=== PATIENT | male | born 1940 | race Caucasian/White ===

== ENCOUNTER 2018-08-09 16:36 | Inpatient (IN) | payer MEDICARE, MEDICAID ==
[2018-08-09 17:19] LABS: % BASOPHILS 0.7 % (0.0-2.0); % EOSINOPHILS 10.5 % (0.0-5.0); % LYMPHOCYTES 15.8 % (20.0-50.0); % MONOCYTES 11.4 % (2.0-10.0); % NEUTROPHILS 61.6 % (40.0-80.0); EOSINOPHILE ABSOLUTE 0.6 Th/cmm (0.1-0.4); HEMATOCRIT 32.5 % (41.0-60); HEMOGLOBIN 10.6 gm/dL (12-16); MEAN CELL VOLUME 87.7 fl (80-99); MEAN CORPUSCULAR HEMOGLOBIN 28.6 pg (27.0-31.0); MEAN CORPUSCULAR HGB CONC 32.7 pg (28.0-36.0); MEAN PLATELET VOLUME 6.8 fl; MONOCYTE ABSOLUTE 0.7 Th/cmm (0.3-1.0); NEUTROPHILE ABSOLUTE 3.8 Th/cmm (1.8-8.0); PLATELET COUNT 244 Th/cmm (150-400); RED BLOOD COUNT 3.71 Mil/cmm (3.80-5.80); RED CELL DISTRIBUTION WIDTH 14.5 % (11.5-20.0); WHITE BLOOD COUNT 6.1 Th/cmm (4.8-10.8)
[2018-08-09 17:27] LABS: URINE SOURCE CLEAN C
[2018-08-09 17:29] LABS: URINE BILIRUBIN NEGATIVE (NEGATIVE); URINE BLOOD SMALL (NEGATIVE); URINE GLUCOSE (UA) NEGATIVE (NEGATIVE); URINE KETONE NEGATIVE (NEGATIVE); URINE LEUKOCYTE ESTERASE LARGE (NEGATIVE); URINE MICROSCOPIC INDICATED? YES; URINE NITRATE POSITIVE (NEGATIVE); URINE PROTEIN NEGATIVE (NEGATIVE); URINE UROBILINOGEN 0.2 E.U./dL (0.2 - 1.0)
[2018-08-09 17:37] LABS: URINE CLARITY CLOUDY (CLEAR); URINE COLOR YELLOW
[2018-08-09 17:41] LABS: URINE RBC 0-2 /hpf (0-5)
[2018-08-09 17:43] LABS: URINE BACTERIA FEW /hpf (NONE SEEN); URINE EPITHELIAL CELLS RARE /lpf (FEW); URINE WBC >100 /hpf (0-5)
[2018-08-09 17:44] LABS: ALB/GLOB RATIO 1.3 (1.0-1.8); ALBUMIN 3.6 gm/dL (4.2-5.5); ALKALINE PHOSPHATASE 83 U/L (34-104); ANION GAP 12.8 (7.0-16.0); BILIRUBIN,TOTAL 0.2 mg/dL (0.3-1.0); BUN - UREA NITROGEN 34 mg/dL (7-25); CALCIUM SERUM 8.7 mg/dL (8.6-10.3); CARBON DIOXIDE 23.6 mEq/L (21.0-31.0); CHLORIDE 107 mEq/L (98-107); CREATININE - SERUM 1.3 mg/dL (0.7-1.3); GLUCOSE 127 mg/dL (70-105); MAGNESIUM 1.8 mg/dL (1.9-2.7); PHOSPHOROUS 3.1 mg/dL (2.5-5.0); POTASSIUM SERUM 4.4 mEq/L (3.5-5.1); SGOT 16 U/L (13-39); SGPT/ALT 14 U/L (7-52); SODIUM SERUM 139 mEq/L (136-145); TOTAL PROTEIN,SERUM 6.3 gm/dL (6.0-8.3)
[2018-08-09 17:52] LABS: AMPHETAMINE URINE NEGATIVE (NEGATIVE); BARBITURATES URINE NEGATIVE (NEGATIVE); BENZODIAZEPINES QUAL URINE NEGATIVE (NEGATIVE); CANNABINOID THC NEGATIVE (NEGATIVE); COCAINE METABOLITE QUAL URINE NEGATIVE (NEGATIVE); METHADONE URINE NEGATIVE (NEGATIVE); METHAMPHETAMINES QUAL URINE NEGATIVE (NEGATIVE); OPIATES (MORPHINE) QUAL. URINE NEGATIVE (NEGATIVE); PHENCYCLIDINE (PCP) URINE NEGATIVE (NEGATIVE); TRICYCLICS (TCA) QUAL. URINE POSITIVE (NEGATIVE)
[2018-08-09] MEDS ORDERED: Ciprofloxacin 400mg Premix PB 400 MG/200 ML BAG IV ONE ×2 (18:04→18:26)
--- NOTE | 2018-08-09 19:09 | ED Physician Chart ---
ED Chief Complaint/HPI - Patient Information Date Seen:: 08/09/18 Time Seen:: 16:47 Chief Complaint:: increased agitation History of Present Illness:: agitation and screaming and yelling at staff Allergies:: Allergies Allergy/AdvReac Type Severity Reaction Status Date / Time Penicillins Allergy Verified 08/09/18 17:08 Vitals:: Vital Signs - 8 hr 08/09/18 16:47 Temp 97.7 F HR 82 RR 16 BP 141/75 O2 Sat % 97 Historian:: Medical Records Review:: Nurse's Note Reviewed, Transfer documents Reviewed ED Review of Systems - Review of Systems General/Constitutional: No fever, No chills, No weight loss, No weakness, No diaphoresis, No edema, No loss of appetite Skin: No skin lesions, No rash, No bruising Head: No headache, No light-headedness Eyes: No loss of vision, No pain, No diplopia ENT: No earache, No nasal drainage, No sore throat, No tinnitus Neck: No neck pain, No swelling, No thyromegaly, No stiffness, No mass noted Cardio Vascular: No chest pain, No palpitations, No PND, No orthopnea, No edema Pulmonary: No SOB, No cough, No sputum, No wheezing GI: No nausea, No vomiting, No diarrhea, No pain, No melena, No hematochezia, No constipation, No hematemesis G/U: No dysuria, No frequency, No hematuria, Other (foul smelling urine) Musculoskeletal: No bone or joint pain, No back pain, No muscle pain Endocrine: No polyuria, No polydipsia Psychiatric: No prior psych history, No depression, No anxiety, No suicidal ideation, Other (increased agitation) Hematopoietic: No bruising, No lymphadenopathy Allergic/Immuno: No urticaria, No angioedema Neurological: No syncope, No focal symptoms, No weakness, No paresthesia, No headache, No seizure, No dizziness, No confusion, No vertigo ED Past Medical History - Past Medical History Obtainable: No Past Medical History: DM, Dyslipidemia, Other (UTI's; muscle weakness; bph) Family Medical History - Family Member Father History Unknown: Yes Ethnicity: Non- Living Status: Unknown Hx Family Cancer: No Hx Family Coronary Artery Disease: No Hx Family Congestive Heart Failure: No Hx Family Hypertension: Yes Hx Family Stroke: No Hx Family Diabetes: No Hx Family Seizures: No Hx Family Dementia: No Hx Family AIDS: No Hx Family HIV: No Hx Family COPD: No Hx Family Hepatitis: No Hx Family Psychiatric Problems: No Hx Family Tuberculosis: No ED Physical Exam - Physical Examination General/Constitutional: Awake, Well-developed, well-nourished, Alert, No distress, Non-toxic appearing, Ambulatory Other Gen/Cons comments:: strong smell of urine. Head: Atraumatic Eyes: Lids, conjuctiva normal, PERRL, EOMI Skin: Nl inspection, No rash, No skin lesions, No ecchymosis, Well hydrated, No lymphadenopathy ENMT: External ears, nose nl Neck: Nontender, No nuchal rigidity, No stridor Respiratory: Nl effort/Exclusion, Clear to Auscultation, No Wheeze/Rhonchi/Rales Cardio Vascular: RRR, No murmur, gallop, rubs, NL S1 S2 GI: No tenderness/rebounding/guarding, No organomegaly, No hernia, Normal BS's, Nondistended, No mass/bruits, No McBurney tenderness : No CVA tenderness Extremities: No tenderness or effusion, Full ROM, normal strength in all extremities Neuro/Psych: Normal motor strength, Normal gait Other Neuro/Psych comments:: not agitated at this time. ED Labs/Radiology/EKG Results - Lab Results Results: Laboratory Tests 08/09/18 08/09/18 08/09/18 17:01 17:10 17:10 WBC 6.1 RBC 3.71 L Hgb 10.6 L Hct 32.5 L MCV 87.7 MCH 28.6 MCHC Differential 32.7 RDW 14.5 Plt Count 244 MPV 6.8 Neutrophils % 61.6 Lymphocytes % 15.8 L Monocytes % 11.4 H Eosinophils % 10.5 H Basophils % 0.7 Sodium 139 Potassium 4.4 Chloride 107 Carbon Dioxide 23.6 Anion Gap 12.8 BUN 34 H Creatinine 1.3 Est GFR ( Amer) TNP Est GFR (Non-Af Amer) TNP BUN/Creatinine Ratio 26.2 Glucose 127 H POC Glucose 116 H Calcium 8.7 Phosphorus 3.1 Magnesium 1.8 L Total Bilirubin 0.2 L AST 16 ALT 14 Alkaline Phosphatase 83 Total Protein 6.3 Albumin 3.6 L Globulin 2.7 Albumin/Globulin Ratio 1.3 TSH Urine Source Urine Color Urine Clarity Urine pH Ur Specific [place] Urine Protein Urine Glucose (UA) Urine Ketones Urine Blood Urine Nitrate Urine Bilirubin Urine Urobilinogen Ur Leukocyte Esterase Urine RBC Urine WBC Ur Epithelial Cells Urine Bacteria Urine Opiates Screen Urine Methadone Screen Ur Barbiturates Screen Ur Tricyclics Screen Ur Phencyclidine Scrn Amphetamines Screen U Methamphetamines Scrn U Benzodiazepines Scrn U Cocaine Metab Screen U Cannabinoids Screen 08/09/18 08/09/18 08/09/18 17:10 17:15 17:15 WBC RBC Hgb Hct MCV MCH MCHC Differential RDW Plt Count MPV Neutrophils % Lymphocytes % Monocytes % Eosinophils % Basophils % Sodium Potassium Chloride Carbon Dioxide Anion Gap BUN Creatinine Est GFR ( Amer) Est GFR (Non-Af Amer) BUN/Creatinine Ratio Glucose POC Glucose Calcium Phosphorus Magnesium Total Bilirubin AST ALT Alkaline Phosphatase Total Protein Albumin Globulin Albumin/Globulin Ratio TSH 1.68 Urine Source CLEAN C Urine Color YELLOW Urine Clarity CLOUDY Urine pH 7.0 Ur Specific [place] 1.020 Urine Protein NEGATIVE Urine Glucose (UA) NEGATIVE Urine Ketones NEGATIVE Urine Blood SMALL H Urine Nitrate POSITIVE H Urine Bilirubin NEGATIVE Urine Urobilinogen 0.2 Ur Leukocyte Esterase LARGE H Urine RBC 0-2 H Urine WBC >100 H Ur Epithelial Cells RARE Urine Bacteria FEW Urine Opiates Screen NEGATIVE Urine Methadone Screen NEGATIVE Ur Barbiturates Screen NEGATIVE Ur Tricyclics Screen POSITIVE H Ur Phencyclidine Scrn NEGATIVE Amphetamines Screen NEGATIVE U Methamphetamines Scrn NEGATIVE U Benzodiazepines Scrn NEGATIVE U Cocaine Metab Screen NEGATIVE U Cannabinoids Screen NEGATIVE ED Assessment - Assessment General Assessment: call to Dr. Barr regarding the very strong UTI that this patient has with greater than 100 WBC in the urine. Dr. Barr will admit this patient to the med/surg unit for medical treatment. ED Septic Shock - . Is Septic Shock (SBP<90, OR Lactate>4 mmol\L) present?: No - <6hrs of presentation: Vital Signs: Vital Signs - 8 hr 08/09/18 16:47 Temp 97.7 F HR 82 RR 16 BP 141/75 O2 Sat % 97 ED Reassessment (Disposition) - Reassessment Reassessment Condition:: Unchanged - Diagnosis Diagnosis:: Urinary tract infection Increased agitation. Anemia Dehydration. Positive tricyclics - Patient Disposition Discharge/Transfer:: Acute Care w/in this hosp Admitted to:: Med/Surg Condition at Disposition:: Stable, Unchanged
[2018-08-09] MEDS ORDERED: Magnesium Hydroxide (MOM) 30 mL UDC PO PRN (19:12)
[2018-08-09] MEDS ORDERED: Albuterol Nebulizer 2.5mg/3mL HHN PRN (19:12)
[2018-08-09] MEDS ORDERED: Fleet Enema 135 mL RC PRN (19:12)
[2018-08-09] MEDS ORDERED: GLUCAGON HCl 1 MG KIT IM PRN (19:20)
[2018-08-09] MEDS ORDERED: Dextrose 50% 50 mL Abboject IVP PRN (19:20)
[2018-08-09] MEDS ORDERED: Albuterol Nebulizer 2.5mg/3mL HHN ONE (19:39)
[2018-08-09] MEDS: INSULIN LISPRO SLIDING SCALE 100 UNITS/ML UNIT SUBQ SCH (20:26)
[2018-08-10 00:58] VITALS: BP 123/63
[2018-08-10 05:45] LABS: ANION GAP 11.6 (7.0-16.0); BUN - UREA NITROGEN 32 mg/dL (7-25); CALCIUM SERUM 8.6 mg/dL (8.6-10.3); CARBON DIOXIDE 24.7 mEq/L (21.0-31.0); CHLORIDE 107 mEq/L (98-107); CREATININE - SERUM 1.2 mg/dL (0.7-1.3); GLUCOSE 95 mg/dL (70-105); MAGNESIUM 1.9 mg/dL (1.9-2.7); PHOSPHOROUS 3.1 mg/dL (2.5-5.0); POTASSIUM SERUM 4.3 mEq/L (3.5-5.1); SODIUM SERUM 139 mEq/L (136-145)
[2018-08-10] MEDS: Levofloxacin 500mg/100mL 500 MG/100 ML BAG IV SCH (06:10)
[2018-08-10] MEDS: INSULIN LISPRO SLIDING SCALE 100 UNITS/ML UNIT SUBQ SCH ×3 (06:58→21:16)
[2018-08-10] MEDS: Benztropine 1 MG TAB PO SCH ×2 (08:51→21:20)
--- NOTE | 2018-08-10 12:58 | History & Physical ---
ADMIT DATE: 08/09/2018 CHIEF COMPLAINT: Increasing agitation, the patient not clearly ____ HISTORY OF PRESENT ILLNESS: This is a 77-year-old male with history of diabetes, hypertension, BPH, CHF, hypercholesterolemia, and UTI, admitted from nursing facility secondary to increase in agitation. The patient is found to have florid UTI and transferred to medical floor for further management. PAST MEDICAL HISTORY: As mentioned in the history of present illness. PAST SURGICAL HISTORY: Status post ____ surgery x 3 and eye surgery. ALLERGIES: PENICILLIN. MEDICATIONS: Aripiprazole, Levaquin, tamsulosin, Tylenol, aspirin, ____, Cogentin, ____, BuSpar, Tegretol, cholecalciferol, clonazepam, Depakote, finasteride, Lasix, magnesium, sodium phosphate, ____. FAMILY HISTORY: Noncontributory. SOCIAL HISTORY: The patient is a senior care patient, smokes occasionally, drinks occasionally, no intravenous drug use. The patient ____ one time. Single, no children. REVIEW OF SYSTEMS: GENERAL: Not feeling well. HEENT: The patient has no blurred vision. LUNGS: No diagnosis of COPD or asthma. HEART: The patient with hypertension, diabetes. ABDOMEN: No nausea, vomiting, or pain. GENITOURINARY: The patient with urinary tract infection. NEUROLOGIC: Denies seizure or syncope. PSYCHIATRIC: Stable. PHYSICAL EXAMINATION: VITAL SIGNS: Blood pressure 120/93, respirations 20, pulse 78, temperature 95.7. GENERAL: Elderly obese, middle-aged elderly male in no acute distress. NECK: Supple. No mass. LUNGS: Equal breath sounds, otherwise clear to auscultation. HEART: Regular rate and rhythm without appreciable murmur. ABDOMEN: Soft, globular. EXTREMITIES: Positive excoriation. NEUROLOGIC: Limited. LABORATORY DATA: WBC 6, hemoglobin 10.6, platelets 244. Sodium 139, potassium 4.4, BUN 24, creatinine 1.3, blood sugar 116. UA greater than 100 wbc's. ASSESSMENT AND PLAN: 1. Urinary tract infection. 2. Anemia. 3. Diabetes. 4. Hypertension. 5. Benign prostatic hypertrophy. 6. Congestive heart failure. 7. Hypercholesterolemia. 8. Renal insufficiency. PLAN: We will continue the patient on IV antibiotics. We will follow up on urine culture. Psychiatry has been consulted. Continue with current care. Followup consult and recommendations. We will adjust the patient's medications. [facility]# [id number]
[2018-08-11] MEDS: Levofloxacin 500mg/100mL 500 MG/100 ML BAG IV SCH (05:47)
[2018-08-11] MEDS: Vitamin E 1,000 IU Sgl PO SCH (09:32)
[2018-08-11] MEDS: INSULIN LISPRO SLIDING SCALE 100 UNITS/ML UNIT SUBQ SCH ×4 (09:35→21:11)
[2018-08-11] MEDS: Benztropine 1 MG TAB PO SCH ×2 (09:37→17:53)
--- NOTE | 2018-08-11 12:39 | Internal Medicine Prog Note ---
Internal Medicine Subjective - Subjective Patient seen and examined:: with staff, chart reviewed Patient is:: awake, verbal, interactive, ambulating Patient Complaints of:: congestion, cough Per staff patient has:: no adverse event, no episodes of fall, eating well, tolerating meds Internal Medicine Objective - Results Result Diagrams: 08/09/18 17:10 08/10/18 04:55 Recent Labs: Laboratory Last Values WBC 6.1 Th/cmm (4.8-10.8) 08/09/18 17:10 RBC 3.71 Mil/cmm (3.80-5.80) L 08/09/18 17:10 Hgb 10.6 gm/dL (12-16) L 08/09/18 17:10 Hct 32.5 % (41.0-60) L 08/09/18 17:10 MCV 87.7 fl (80-99) 08/09/18 17:10 MCH 28.6 pg (27.0-31.0) 08/09/18 17:10 MCHC Differential 32.7 pg (28.0-36.0) 08/09/18 17:10 RDW 14.5 % (11.5-20.0) 08/09/18 17:10 Plt Count 244 Th/cmm (150-400) 08/09/18 17:10 MPV 6.8 fl 08/09/18 17:10 Neutrophils % 61.6 % (40.0-80.0) 08/09/18 17:10 Lymphocytes % 15.8 % (20.0-50.0) L 08/09/18 17:10 Monocytes % 11.4 % (2.0-10.0) H 08/09/18 17:10 Eosinophils % 10.5 % (0.0-5.0) H 08/09/18 17:10 Basophils % 0.7 % (0.0-2.0) 08/09/18 17:10 Sodium 139 mEq/L (136-145) 08/10/18 04:55 Potassium 4.3 mEq/L (3.5-5.1) 08/10/18 04:55 Chloride 107 mEq/L (98-107) 08/10/18 04:55 Carbon Dioxide 24.7 mEq/L (21.0-31.0) 08/10/18 04:55 Anion Gap 11.6 (7.0-16.0) 08/10/18 04:55 BUN 32 mg/dL (7-25) H 08/10/18 04:55 Creatinine 1.2 mg/dL (0.7-1.3) 08/10/18 04:55 Est GFR ( Amer) TNP 08/10/18 04:55 Est GFR (Non-Af Amer) TNP 08/10/18 04:55 BUN/Creatinine Ratio 26.7 08/10/18 04:55 Glucose 95 mg/dL (70-105) 08/10/18 04:55 POC Glucose 89 MG/DL (70 - 105) 08/11/18 11:08 Calcium 8.6 mg/dL (8.6-10.3) 08/10/18 04:55 Phosphorus 3.1 mg/dL (2.5-5.0) 08/10/18 04:55 Magnesium 1.9 mg/dL (1.9-2.7) 08/10/18 04:55 Total Bilirubin 0.2 mg/dL (0.3-1.0) L 08/09/18 17:10 AST 16 U/L (13-39) 08/09/18 17:10 ALT 14 U/L (7-52) 08/09/18 17:10 Alkaline Phosphatase 83 U/L (34-104) 08/09/18 17:10 B-Natriuretic Peptide < 5.0 pg/mL (5.0-100.0) L 08/10/18 04:55 Total Protein 6.3 gm/dL (6.0-8.3) 08/09/18 17:10 Albumin 3.6 gm/dL (4.2-5.5) L 08/09/18 17:10 Globulin 2.7 gm/dL 08/09/18 17:10 Albumin/Globulin Ratio 1.3 (1.0-1.8) 08/09/18 17:10 TSH 1.68 uIU/ml (0.34-5.60) 08/09/18 17:10 Urine Source CLEAN C 08/09/18 17:15 Urine Color YELLOW 08/09/18 17:15 Urine Clarity CLOUDY (CLEAR) 08/09/18 17:15 Urine pH 7.0 (4.6 - 8.0) 08/09/18 17:15 Ur Specific [place] 1.020 (1.005-1.030) 08/09/18 17:15 Urine Protein NEGATIVE mg/dL (NEGATIVE) 08/09/18 17:15 Urine Glucose (UA) NEGATIVE mg/dL (NEGATIVE) 08/09/18 17:15 Urine Ketones NEGATIVE mg/dL (NEGATIVE) 08/09/18 17:15 Urine Blood SMALL (NEGATIVE) H 08/09/18 17:15 Urine Nitrate POSITIVE (NEGATIVE) H 08/09/18 17:15 Urine Bilirubin NEGATIVE (NEGATIVE) 08/09/18 17:15 Urine Urobilinogen 0.2 E.U./dL (0.2 - 1.0) 08/09/18 17:15 Ur Leukocyte Esterase LARGE (NEGATIVE) H 08/09/18 17:15 Urine RBC 0-2 /hpf (0-5) H 08/09/18 17:15 Urine WBC >100 /hpf (0-5) H 08/09/18 17:15 Ur Epithelial Cells RARE /lpf (FEW) 08/09/18 17:15 Urine Bacteria FEW /hpf (NONE SEEN) 08/09/18 17:15 Urine Opiates Screen NEGATIVE (NEGATIVE) 08/09/18 17:15 Urine Methadone Screen NEGATIVE (NEGATIVE) 08/09/18 17:15 Ur Barbiturates Screen NEGATIVE (NEGATIVE) 08/09/18 17:15 Valproic Acid < 10.0 ug/mL (50.0-100.0) L 08/10/18 04:55 Ur Tricyclics Screen POSITIVE (NEGATIVE) H 08/09/18 17:15 Ur Phencyclidine Scrn NEGATIVE (NEGATIVE) 08/09/18 17:15 Amphetamines Screen NEGATIVE (NEGATIVE) 08/09/18 17:15 U Methamphetamines Scrn NEGATIVE (NEGATIVE) 08/09/18 17:15 U Benzodiazepines Scrn NEGATIVE (NEGATIVE) 08/09/18 17:15 U Cocaine Metab Screen NEGATIVE (NEGATIVE) 08/09/18 17:15 U Cannabinoids Screen NEGATIVE (NEGATIVE) 08/09/18 17:15 - Physical Exam Vitals and I&O: Vital Signs Temp 98.9 F 08/11/18 11:38 Pulse 68 08/11/18 11:38 Resp 20 08/11/18 11:38 BP 126/70 08/11/18 11:38 Pulse Ox 96 08/11/18 11:38 Intake & Output 08/10/18 08/11/18 08/11/18 18:59 06:59 18:59 Intake Total 950 Balance 950 Weight (lbs) 131.542 kg 131.542 kg Intake: Intake, IV Amount 100 Levofloxacin 500mg/100mL 100 500 mg In 100 ml @ 100 mls/hr IV Q24HR [facility] Rx#: [id number] Oral 850 Other: # Voids 3 3 Weight Source Bedscale Bedscale Active Medications: Current Medications Acetaminophen (Tylenol) 650 mg PO Q4H PRN PRN Reason: Pain Or Fever >100.5 Stop: 10/08/18 19:11 Last Admin: 08/11/18 00:45 Dose: 650 mg Albuterol Sulfate (Albuterol 2.5mg/3ml Neb Ud) 2.5 mg HHN Q2HRT PRN PRN Reason: Bronchospasm Stop: 10/08/18 19:11 Last Admin: 08/09/18 21:34 Dose: 2.5 mg Aspirin (Ecotrin) 81 mg PO DAILY [facility] Stop: 10/09/18 08:59 Last Admin: 08/11/18 09:36 Dose: Not Given Benazepril HCl (Lotensin) 10 mg PO DAILY [facility] Stop: 10/09/18 08:59 Last Admin: 08/11/18 09:37 Dose: Not Given Benztropine Mesylate (Cogentin) 1 mg PO BID [facility] Stop: 10/09/18 08:59 Last Admin: 08/11/18 09:37 Dose: Not Given Bisacodyl (Dulcolax 10 Mg Supp) 10 mg RC DAILY PRN PRN Reason: Constipation Stop: 10/08/18 19:11 Bupropion HCl (Wellbutrin Sr) 300 mg PO DAILY [facility]; Protocol Stop: 10/09/18 08:59 Last Admin: 08/11/18 11:07 Dose: 300 mg Carbamazepine (Tegretol) 400 mg PO BID [facility] Stop: 10/08/18 20:59 Last Admin: 08/11/18 09:37 Dose: Not Given Cholecalciferol (Vitamin D3) 3,000 iu PO DAILY [facility] Stop: 10/09/18 08:59 Last Admin: 08/11/18 09:37 Dose: 3,000 iu Clonazepam (Klonopin) 1 mg PO DAILY [facility]; Protocol Stop: 10/09/18 08:59 Last Admin: 08/11/18 09:37 Dose: Not Given Cyanocobalamin (Vitamin B12) 1,000 mcg PO DAILY [facility] Stop: 10/10/18 08:59 Last Admin: 08/11/18 09:38 Dose: Not Given Dextrose (D50w) 50 ml IVP PRN PRN PRN Reason: Blood Glucose less than 70 Stop: 10/08/18 19:19 Dextrose (Glutose 40%) 18.75 gm PO PRN PRN PRN Reason: Blood Glucose less than 70 Stop: 10/08/18 19:19 Divalproex Sodium (Depakote Dr) 500 mg PO BID [facility]; Protocol Stop: 10/08/18 20:59 Last Admin: 08/11/18 09:38 Dose: Not Given Finasteride (Proscar) 5 mg PO HS [facility]; Protocol Stop: 10/08/18 20:59 Last Admin: 08/10/18 21:22 Dose: 5 mg Furosemide (Lasix) 40 mg PO BID [facility] Stop: 10/09/18 08:59 Last Admin: 08/11/18 09:31 Dose: 40 mg Glucagon (Glucagen) 1 mg IM PRN PRN PRN Reason: Blood Glucose less than 70 Stop: 10/08/18 19:19 Levofloxacin (Levaquin Pb) 500 mg in 100 mls @ 100 mls/hr IV Q24HR [facility] Stop: 10/09/18 05:59 Last Admin: 08/11/18 05:47 Dose: 100 mls/hr Insulin Human Lispro (Humalog Insulin Sliding Scale) 0 units SUBQ ACHS [facility]; Protocol Stop: 10/08/18 20:59 Last Admin: 08/11/18 11:10 Dose: Not Given Magnesium Hydroxide (Milk Of Magnesia) 30 ml PO HS PRN PRN Reason: Constipation Stop: 10/08/18 19:11 Last Admin: 08/10/18 03:43 Dose: 30 ml Metformin HCl (Glucophage) 850 mg PO TIDWM [facility] Stop: 10/08/18 20:59 Last Admin: 08/11/18 11:10 Dose: Not Given Naproxen (Naprosyn) 500 mg PO BID PRN PRN Reason: Pain (Moderate) Stop: 10/09/18 08:59 Last Admin: 08/09/18 21:38 Dose: 500 mg Niacin (Vitamin B3) 500 mg PO DAILY [facility] Stop: 10/09/18 16:14 Last Admin: 08/11/18 09:33 Dose: 500 mg Quetiapine Fumarate (Seroquel) 100 mg PO HS [facility]; Protocol Stop: 10/08/18 20:59 Quetiapine Fumarate (Seroquel) 25 mg PO HS [facility]; Protocol Stop: 10/08/18 20:59 Sodium Phosphate (Fleet Enema) 135 ml RC Q48HR PRN PRN Reason: Constipation Stop: 10/08/18 19:11 Vitamin E (Vitamin E) 1,000 iu PO DAILY [facility] Stop: 10/10/18 08:59 Last Admin: 08/11/18 09:32 Dose: 1,000 iu General: alert, obese, appears younger HEENT: NC/AT, PERRLA, EOMI Neck: Supple, No JVD Lungs: congested, rales Cardiovascular: RRR, Normal S1, Normal S2, without murmur Abdomen: soft, non-tender, globular, positive bowel sound Extremities: excoriation Neurological: no change Internal Medicine Assmt/Plan - Assessment Assessment: ASSESSMENT AND PLAN: 1. Urinary tract infection. 2. Anemia. 3. Diabetes. 4. Hypertension. 5. Benign prostatic hypertrophy. 6. Congestive heart failure. 7. Hypercholesterolemia. 8. Renal insufficiency. cough - Plan Plan: PLAN: We will continue the patient on IV antibiotics. We will follow up on urine culture. Psychiatry has been consulted. Continue with current care. Followup consult and recommendations. We will adjust the patient's medications. will do cxr Nutritional Asmnt/Malnutr-PDOC - Dietary Evaluation Malnutrition Findings (Please click <Entered> for more info): Nutritional Asmnt/Malnutrition Start: 08/10/18 16: 34 Text: Status: Complete Freq: Protocol: Document 08/10/18 16:34 LCHENG (Rec: 08/10/18 16:57 LCHENG [id number]) Nutritional Asmnt/Malnutrition Patient General Information Nutritional Screening High Risk Consult Diagnosis UTI Pertinent Medical Hx/Surgical Hx DM, dyslipidemia, UTI/s muscle weakness, BPH Subjective Information Consult received for hypoglycemia. Per nurse Cori, pt requested snacks between meals/6 meals a day d/ t hypoglycemia. Pt seen eating lunch in room at time of visit, asking for more food. Explained CCHO-75gm diet to pt . Offered snacks between meals and pt accepted. Pt stated he needs Glucerna TID. Tried to explain that pt does not need extra kcal/protein d/t adequate food intake. Current Diet Order/ Nutrition Support CCHO 75gm Pertinent Medications vit D3, Vit B12, lasix, humalog, levaquin, glucophage, Vit B3, seroquel, vit E Pertinent Labs 08/10 Glucose 95, BUN 32 08/09 BUN 34, Glucose 127, alb 3.6 Nutritional Hx/Data Height 1.93 m Height (Calculated Centimeters) 193.0 Current Weight (lbs) 134.263 kg Weight (Calculated Kilograms) 134.3 Weight (Calculated Grams) 341612.3 [place] Body Weight 202 Body Mass Index (BMI) 36.0 Weight Status Obese GI Symptoms GI Symptoms None Last BM not indicated Difficult in: None Skin Integrity/Comment: reddened to leg Current %PO Good (75-100%) Estimated Nutritional Goals BEE in Kcals: Adj wt of IBW Calories/Kcals/Kg 23-27 Kcals Calculated [id number] Protein: Adj wt of IBW Protein g/k.8 Protein Calculated 81 Fluid: ml 2323-2727ml (1ml/kcal) Nutritional Problem No current Nutrition Prob Problem N/A Malnutrition Alert Is there a minimum of two criteria No selected? Query Text:Check all the applicable criteria. A minimum of two criteria are recommended for diagnosis of either severe or non-severe malnutrition. Malnutrition Related to Morbid Obesity Malnutrition related to morbid obesity No Intervention/Recommendation Comments 1. Continue with [id number] diet as ordered. Double protein and non-starch veggies. 2. Monitor PO intake, wt, labs and skin integrity 3. F/U as low risk in 7 days Expected Outcomes/Goals Expected Outcomes/Goals 1. PO intake to meet at least 75% of nutritional needs. 2. Wt stability, skin to remain intact, labs to approach WNL.
--- NOTE | 2018-08-11 13:03 | Diagnostic Imaging Report ---
Portable chest x-ray History: Cough Allowing for portable technique the heart size is normal. No focal pulmonary parenchymal processes. No hilar or mediastinal abnormalities. Impression: No acute abnormalities.
--- NOTE | 2018-08-11 15:14 | History & Physical ---
ADMIT DATE: 08/09/2018 CHIEF COMPLAINT: "I am here to get x-rays done on all my shoulder, finger, and the back." HISTORY OF PRESENT ILLNESS: Staff was spoken to. The patient is interviewed. Chart is reviewed. This is one of multiple psychiatric hospitalizations for this patient who is a resident of the [facility]. The patient is reporting that he has pain in his left pinky and the left shoulder and he is also stating that he has been having pain in the knees and in the back and the patient is going on and on. The patient has been diagnosed to have major depressive disorder and had been on Wellbutrin. The patient is claiming that he needs up to 1500 mg of the Wellbutrin. The patient is not making any sense. The patient also has been advised to be on the Seroquel, but he is refusing to take medications. Sleep and appetite prior to the hospitalization are reported to be poor. PAST PSYCHIATRIC HISTORY: Please refer to the above. PAST MEDICAL HISTORY: Significant for the patient is having aches and pains. The patient is diabetic and has been testing the limits and taking the medication. SUBSTANCE ABUSE HISTORY: The patient denies use of any drugs or alcohol. SOCIAL HISTORY: The patient is single, has a brother and sister and the patient has no children. The patient is a resident of the [facility]. The patient is reporting that he used to be working at the [employer] and the patient is stating that if he had a chance he would like to go back to work. MENTAL STATUS EXAMINATION: The patient is a 77-year-old well built, superficially cooperative. Eye contact is poor. Mood is noted to be irritable. Affect is constricted. Insight and judgment are noted to be still impaired. Impulse control is noted to be poor. The patient is screaming and yelling at the staff members. The patient has no insight into his illness. Coping skills at this time are noted to be very poor. The patient is not presenting with any threats to harm self, but the patient is very volatile and unpredictable. The patient's attention span and concentration are noted to be impaired, but the patient tends to be very repetitive and goes on a tangent saying that he needs 1500 mg of the Wellbutrin. DIAGNOSTIC IMPRESSION: AXIS I: Major depressive disorder, recurrent and moderate. AXIS I B: Rule out schizoaffective disorder. AXIS II: None. AXIS III: As per Dr. Barr. IMMEDIATE TREATMENT: The patient is going to be continued on the Wellbutrin 300 mg a day and Seroquel is going to be added. ESTIMATED LENGTH OF STAY: 3-5 days. PLAN: The patient is going to be closely monitored. Once stabilized, the patient is going to be discharged to the facility for followup on outpatient basis. JOB# [id number]
[2018-08-12] MEDS: INSULIN LISPRO SLIDING SCALE 100 UNITS/ML UNIT SUBQ SCH ×3 (06:49→16:59)
[2018-08-12] MEDS: Levofloxacin 500mg/100mL 500 MG/100 ML BAG IV SCH (07:22)
[2018-08-12 08:47] LABS: ANION GAP 13.8 (7.0-16.0); BUN - UREA NITROGEN 38 mg/dL (7-25); CALCIUM SERUM 9.2 mg/dL (8.6-10.3); CARBON DIOXIDE 27.3 mEq/L (21.0-31.0); CHLORIDE 101 mEq/L (98-107); CREATININE - SERUM 1.3 mg/dL (0.7-1.3); GLUCOSE 99 mg/dL (70-105); POTASSIUM SERUM 4.1 mEq/L (3.5-5.1); SODIUM SERUM 138 mEq/L (136-145)
[2018-08-12] MEDS: Vitamin E 1,000 IU Sgl PO SCH (09:09)
[2018-08-12] MEDS: Benztropine 1 MG TAB PO SCH ×2 (09:13→17:02)
--- NOTE | 2018-08-12 13:54 | Discharge Summary ---
DATE OF DISCHARGE: 08/12/2018 CHIEF COMPLAINT: Increased agitation ____ urinalysis. FINAL DIAGNOSES: Urinary tract infection positive for Proteus, multidrug resistant, anemia, diabetes, hypertension, benign prostatic hypertroph, congestive heart failure, hypercholesterolemia, renal insufficiency, and schizoaffective disorder. BRIEF HISTORY: This is a 77-year-old male with history of diabetes, hypertension, BPH, obesity, CHF admitted from nursing facility secondary to increasing agitation. The patient was found to have a UTI and able to be admitted to the [facility], patient is transferred to medical floor. PHYSICAL EXAMINATION: VITAL SIGNS: Blood pressure 133/69, respirations 18, pulse 69, temperature 98.4. GENERAL: Elderly male with mildly obese. NECK: Supple. No mass. LUNGS: Equal breath sounds, few rhonchi. HEART: Regular rate and rhythm. Systolic ejection murmur. ABDOMEN: Soft, globular. EXTREMITIES: Positive trace. NEUROLOGIC: Limited. HOSPITAL COURSE: The patient was admitted to a medical floor, continue oxygen and bronchodilator treatments. Continue on IV hydration and IV antibiotic. Urine culture positive for Proteus. The patient is switched to IV amikacin. CONDITION ON DISCHARGE: Fair. DISCHARGE INSTRUCTIONS: The patient to continue ____ for 7 days. The patient was also seen by Psychiatry. JOB# [id number]
[2018-08-14 06:09] LABS: FOLIC ACID 14.2 ng/mL (>3.0)
== END 2018-08-12 17:25 | DRG 690 ==
LOC: ER 16:36 → MSI 19:17
PROVIDERS: ADMIT Internal Medicine; ATTEND Internal Medicine
DX: N39.0 Urinary tract infection, site not specified (principal); F33.1 Major depressive disorder, recurrent, moderate; I50.22 Chronic systolic (congestive) heart failure; N40.0 Benign prostatic hyperplasia without lower urinary tract symptoms; D64.9 Anemia, unspecified; E11.9 Type 2 diabetes mellitus without complications; E78.00 Pure hypercholesterolemia, unspecified; N28.9 Disorder of kidney and ureter, unspecified; I11.0 Hypertensive heart disease with heart failure; E78.5 Hyperlipidemia, unspecified; R45.1 Restlessness and agitation; F25.9 Schizoaffective disorder, unspecified; B96.4 Proteus (mirabilis) (morganii) as the cause of diseases classified elsewhere; Z16.24 Resistance to multiple antibiotics; E86.0 Dehydration; E66.9 Obesity, unspecified; Z87.440 Personal history of urinary (tract) infections; Z88.1 Allergy status to other antibiotic agents; Z68.34 Body mass index [BMI] 34.0-34.9, adult
CPT/HCPCS: 36415-UA; 71045-TC; 80048-TC; 80053-TC; 80164-TC; 80307; 81001-TC; 82140-TC; 82607-90; 82746-90; 82948-90; 83735-TC; 83880-TC; 84100-TC; 84443-TC; 85025-TC; 87086-90; 93005; 94760; J0278; J0744; J1956; J7613; Z7610